=== PATIENT | female | born 1990 | race Caucasian/White ===

== ENCOUNTER → 2017-07-26 | Outpatient (CLI) | payer OTHER ==
--- NOTE | 2017-07-26 15:36 | CONS ---
CONSULTATION REASON FOR CONSULTATION: Sleep apnea. A 26-year-old female, coming in due to concerns of sleep apnea. Her has been telling her that she has been snoring very loud at times. He has noted also that she quit breathing; however, this has not been a common occurrence. The patient denies having any major hypersomnia or sleepiness. Sterling score is at 2. She works locally at [employer] between 4 am and noon. She goes to bed around 6 pm, wakes up at 3 am in the morning. She is averaging around 8 hours of sleep. She occasionally kicks at night. No symptoms of restless legs syndrome. No grinding of the teeth. No sleepwalking or sleep talking. No nocturnal palpitations or heartburn. Weight has been stable for now. She is trying to lose weight. No sleep paralysis. No hallucinations or cataplexy. PAST MEDICAL HISTORY: Negative. SURGICAL HISTORY: Negative. DRUG ALLERGIES: Not known. OUTPATIENT MEDICATIONS ARE: None. SOCIAL HISTORY: The patient is a nonsmoker. No history of alcohol. No history of IV drugs. FAMILY HISTORY: Father has VIKTORIYA and is currently utilizing a CPAP machine. REVIEW OF SYSTEMS: A 12-point review of system was done and positive findings are mentioned above in the history of present illness. The patient does not fall asleep during work or day-to-day activities. She has not been involved in a motor vehicle accident because of sleepiness. She has been doing well for the most part without any nocturia, no anxiety or panic attacks. No depression. No difficulty with concentration. No head trauma. No fever or chills. No other complaints, otherwise. BP is 111/76, pulse 86, respirations 16, temperature 98.8, saturation 99% on room air. Weight is 197. Height is 5, 6 and neck size 15 inches. GENERAL APPEARANCE: Calm, comfortable. Head is atraumatic, normocephalic. Neck is supple. There is no JVD. No goiter or neck masses. Mallampati Class 1. LUNGS: Clear to auscultation. HEART: Sounds regular rate and rhythm. Normal S1, S2. ABDOMEN: Soft, nontender. No organomegaly. EXTREMITIES: No edema. No cyanosis or clubbing. NEUROLOGIC: Alert and oriented x3. There is no focal neurological deficits. Psychiatrically appropriate mood and affect. IMPRESSION: 1. Obstructive sleep apnea, clinically suspected, currently under investigation. 2. Loud snoring. 3. Borderline obesity with a body mass index of 31.7. PLAN: 1. Proceed with a screening polysomnogram. 2. Further recommendations are to follow based on the results of the sleep study. MMYOELL / IJN: [id number] /
== END | disposition home or self-care (01) ==
LOC: SLEEP 13:37
PROVIDERS: ATTEND Internal Medicine Critical Care Medicine
DX: G47.33 Obstructive sleep apnea (adult) (pediatric) (principal); R06.83 Snoring; E66.9 Obesity, unspecified; Z68.31 Body mass index [BMI] 31.0-31.9, adult
CPT/HCPCS: 99211